=== PATIENT | female | born 1965 | race Caucasian/White ===

== ENCOUNTER → 2022-12-27 | Outpatient (CLI) | payer BC | LOC: 3 N SLEEP 16:43 | PROVIDERS: ATTEND Internal Medicine | DX: G47.33 Obstructive sleep apnea (adult) (pediatric) (principal) ==

== ENCOUNTER → 2023-05-09 | Outpatient (CLI) | payer BC ==
--- NOTE | 2023-05-09 12:09 | P.PN ---
Subjective DATE: [] FOLLOW UP VISIT. Patient with obstructive sleep apnea hypopnea syndrome return to sleep center for follow-up visit. Recently patient had sleep study which documented obstructive sleep apnea hypopnea syndrome. Patient was initiated on PAP therapy and today is first visit after patient received new CPAP. I explained results of home sleep apnea test to the patient in details.. Patient was able to use PAP equipment every night for the whole night. Patient had episode of dizziness 2 times in the morning, after using CPAP, which did not happen before. Patient used CPAP equipment with pressure 5-15, average 7.9 centimeters of H2O. Usage is 80 % for more then 4 hours, average 6.4 hours per night. Leak is extremely high 80 l/m. Patient is using full face mask . Apnea Hypopnea Index is 1.9 which is normal. MEDICATIONS:1. albuterol 2. Flovent During physical exam: GENERAL: A pleasant patient without any distress. VITAL SIGNS: BP 132/67, HR 73, RR 16 , weight 264.2, temperature 98.5, oxygen saturation at room air 95% . HEENT: PERRLA, EOMI.low position of soft palate, Mallapati 3 . NECK: Supple. No JVD. LUNGS: Clear to percussion and to auscultation. Good air exchange. No wheezing or rhonchi. HEART: S1, S2 regular. ABDOMEN: Soft and nontender.slightly obese EXTREMITIES: No clubbing or cyanosis. WEIGHT LOSS COUNSELOR: Awake, alert, and oriented x3. No focal deficit. Impressions: 1. Obstructive sleep apnea-hypopnea syndrome. Patient demonstrated great compl iance with treatment, benefiting from treatment. patient had 2 episodes of dizziness in the morning after using CPAP for the last months . 2. asthma. 3. Obesity. 4. Hands arthritis. 5. Knee arthritis. Plan: 1. Continue using PAP equipment every night for the whole night.I decreased level of pressure to the range 5-10 centimeters of water. 2. To change air filter at least 1-2 times per month. 3. PAP unit should stay lower then position of the head. 4. Advised patient to remove all remaining water from humidifier canister daily and make it dry after each usage. Refill canister with fresh distilled water before each usage. 5. Sleep hygiene with regular time in bed for at least 8 hours. 6. Precautions related to driving. No driving if feel any sleepiness. 7. I will maintain prescription for PAP supplies including mask, tube, filters. 8. Follow up visit in 6 months or earlier if patient has any problems. 9. Watching and losing weight. 10. Prescription for different type of full facemask [employer]. Thank you very much for allowing me to participate in the management of your patient. Steven Desai MD, PhD, FAASM. Diplomat of [place] [employer], Sleep Medicine Board by [place] [employer] Representative of [facility] [place]
== END ==
LOC: 3 N SLEEP 11:32
PROVIDERS: ATTEND Internal Medicine
DX: G47.33 Obstructive sleep apnea (adult) (pediatric) (principal); J45.909 Unspecified asthma, uncomplicated; E66.9 Obesity, unspecified; M19.041 Primary osteoarthritis, right hand; M19.042 Primary osteoarthritis, left hand; Z79.51 Long term (current) use of inhaled steroids; Z79.899 Other long term (current) drug therapy; Z99.89 Dependence on other enabling machines and devices
CPT/HCPCS: 99212

== ENCOUNTER → 2023-06-18 | Outpatient (CLI) | payer BC ==
--- NOTE | 2023-06-25 08:40 | MM ---
Reason for Exam: Screening (asymptomatic). Last mammogram was performed 4 year(s) and 0 month(s) ago. Patient History: Menarche at age 11. First Full-Term at age 23. Postmenopausal. Risk Values: Michelle 5 year model risk: 1.3%. NCI Lifetime model risk: 7.7%. Prior Study Comparison: 06/02/2018 Bilateral Screening Mammogram, [place]. 06/03/2019 Bilateral Screening Mammogram, [place]. Tissue Density: The breasts are heterogeneously dense, which may obscure small masses. Findings: Analyzed By CAD. There is no suspicious group of microcalcifications or new suspicious mass in either breast. Overall Assessment: Benign, BI-RAD 2 Management: Screening Mammogram of both breasts in 1 year. . Patient should continue monthly self-breast exams. A clinical breast exam by your physician is recommended on an annual basis. This exam should not preclude additional follow-up of suspicious palpable abnormalities. Note on Michelle scores and lifetime risk: 1. A Michelle score greater than 3% is considered moderate risk. If this is the case, consider specialist referral to assess eligibility for a risk reducing agent. 2. If overall lifetime risk for the development of breast cancer is 20% or higher, the patient may qualify for future screening with alternating mammogram and breast MRI. Electronically signed and approved by: Maikol Greene M.D. [facility]olog[facility]
== END | disposition home or self-care (01) ==
LOC: RADMAMWWP 16:01
PROVIDERS: ATTEND Family Medicine
DX: Z12.31 Encounter for screening mammogram for malignant neoplasm of breast (principal); Z78.0 Asymptomatic menopausal state
CPT/HCPCS: 77067